=== PATIENT | female | born 1995 | race Caucasian/White ===

== ENCOUNTER 2022-04-16 08:57 | Outpatient (CLI) | payer BC ==
[2022-04-16 09:58] LABS: #Monocytes 0.6 10x3/uL (0.0-1.1); #Neutrophils 6.1 10x3/uL (1.5-8.4); %Basophils 0.4 % (0.0-2.0); %Eosinophils 0.4 % (0.0-6.0); %Lymphocytes 17.6 % (18.0-47.0); %Monocytes 6.7 % (0.0-10.0); %Neutrophils 74.4 % (40.0-75.0); Mean Corpuscular Hemoglobin 31.4 pg (27.0-33.0); Mean Corpuscular Volume 89.8 fl (81.6-98.3); Mean Platelet Volume 11.2 fl (7.4-10.4); Platelet Count 174 10x3/uL (150-450); RBC Distribution Width 12.8 % (11.5-14.5); Red Blood Cell (RBC) Count 3.82 10x6/uL (3.90-5.03); White Blood Cell (WBC) Count 8.2 10x3/uL (3.5-10.5)
[2022-04-16 10:33] LABS: SARS-CoV-2 NAA Rapid Test Not Detected (NotDetected)
[2022-04-16 10:35] LABS: HBSAg Index 0.31 S/CO (0-0.99); Hep B Surf Ag Non-Reactive S/CO (NonReactive); Syphilis Antibody Nonreactive (Nonreactive); Syphilis Antibody Index 0.05 S/CO (<1.00 Non-Reactive)
== END 2022-04-16 08:58 | disposition home or self-care (01) ==
LOC: CSHLAB 08:57
PROVIDERS: ATTEND Obstetrics & Gynecology
DX: Z01.812 Encounter for preprocedural laboratory examination (principal); Z20.822 Contact with and (suspected) exposure to COVID-19
CPT/HCPCS: 85025; 86780; 86900; 86901; 87340; U0002

== ENCOUNTER 2022-04-19 10:05 | Inpatient (IN) | payer BC ==
[2022-04-19] MEDS ORDERED: CEFAZOLIN 2 GM in Sodium Chloride 0.9% 100 ML IVPB SCH (10:22)
[2022-04-19] MEDS ORDERED: Ondansetron PF 4 MG/2 ML Vial IVP PRN ×2 (10:22→11:24)
[2022-04-19] MEDS ORDERED: Bicitra 30 ML UDCUP PO PRN (10:22)
[2022-04-19] MEDS ORDERED: Acetaminophen 500 MG TAB PO PRN (10:22)
[2022-04-19] MEDS ORDERED: Famotidine/PF 20 mg/2ml Vial SLOW IVP PRN (10:22)
[2022-04-19] MEDS ORDERED: hydrALAZINE 20 MG/ML VIAL SLOW IVP PRN ×2 (10:22→13:50)
[2022-04-19] MEDS ORDERED: Promethazine HCl 25 MG/ML VIAL IM PRN ×2 (10:22→11:24)
[2022-04-19 10:23] VITALS: BMI 27.6
[2022-04-19] MEDS ORDERED: Terbutaline Sulfate 1 MG/ML VIAL ONE (10:52)
[2022-04-19] MEDS: Lactated Ringer's 1,000 ML IV SCH ×2 (11:06→11:08)
[2022-04-19] MEDS ORDERED: Naloxone HCl 0.4 mg/ml Vial IV PRN (11:24)
[2022-04-19] MEDS ORDERED: Meperidine HCl/PF 25 MG/ML VIAL SLOW IVP PRN (11:24)
[2022-04-19] MEDS ORDERED: Ketorolac Tromethamine 30 MG/ML VIAL IVP PRN ×2 (11:24→20:46)
[2022-04-19] MEDS ORDERED: Naloxone HCl 0.4 mg/ml Vial IVP PRN ×2 (11:24)
[2022-04-19] MEDS ORDERED: Ondansetron HCl/PF 4 MG/2 ML Vial IVP PRN (11:24)
[2022-04-19] MEDS ORDERED: Fentanyl 100 MCG/2 ML VIAL SLOW IVP PRN (11:24)
[2022-04-19] MEDS ORDERED: Promethazine HCl 25 MG SUPP PR PRN (11:24)
[2022-04-19] MEDS ORDERED: diphenhydrAMINE 50 MG/ML VIAL IVP PRN (11:24)
[2022-04-19] MEDS ORDERED: Moisturizing Cream (Eucerin) 113 GM JAR TOP PRN (11:24)
[2022-04-19] MEDS ORDERED: HYDROmorphone 2 MG/ML VIAL SLOW IVP PRN (11:24)
[2022-04-19] MEDS ORDERED: Communication Order-Pharmacy FS SCH (11:30)
[2022-04-19] MEDS ORDERED: Ketorolac Tromethamine 30 MG/ML VIAL IVP SCH (11:30)
[2022-04-19] MEDS ORDERED: Fentanyl 100 MCG/2 ML VIAL ONE (12:07)
[2022-04-19] MEDS ORDERED: Morphine PF 10 MG/10 ML VIAL ONE (12:07)
[2022-04-19] MEDS ORDERED: Ondansetron PF 4 MG/2 ML Vial ONE (12:52)
[2022-04-19] MEDS ORDERED: Phenylephrine 10 MG/ML VIAL ONE (12:52)
[2022-04-19] MEDS ORDERED: Dexamethasone 4 mg/ml Vial ONE (12:52)
[2022-04-19] MEDS ORDERED: Oxytocin 10 UNITS/ML VIAL ONE (12:53)
[2022-04-19] MEDS ORDERED: Acetaminophen 325 MG TAB PO PRN (13:50)
[2022-04-19] MEDS ORDERED: diphenhydrAMINE 25 MG CAP PO PRN (13:50)
[2022-04-19] MEDS ORDERED: Lanolin Ointment 7 GM TUBE TOP PRN (13:50)
[2022-04-19] MEDS ORDERED: HYDROcodone/Acetaminophen 5/325 mg Tablet PO PRN (13:50)
[2022-04-19] MEDS ORDERED: Simethicone Chewable 80 MG TAB PO PRN (13:50)
[2022-04-19] MEDS ORDERED: Bisacodyl 10 MG SUPP PR PRN (13:50)
[2022-04-19] MEDS: Ibuprofen 800 MG TAB PO SCH ×2 (14:51→19:47)
[2022-04-19] MEDS: Ferrous Sulfate 325 MG TAB PO SCH (19:42)
[2022-04-20 05:09] LABS: Hemoglobin 10.6 g/dL (12.0-15.5); Mean Corpuscular HGB CONC 34.6 g/dL (32.0-36.0); Mean Corpuscular Hemoglobin 31.9 pg (27.0-33.0); Mean Corpuscular Volume 92.2 fl (81.6-98.3); Mean Platelet Volume 11.5 fl (7.4-10.4); Platelet Count 158 10x3/uL (150-450); RBC Distribution Width 12.6 % (11.5-14.5); Red Blood Cell (RBC) Count 3.32 10x6/uL (3.90-5.03); White Blood Cell (WBC) Count 13.8 10x3/uL (3.5-10.5)
[2022-04-20] MEDS: HYDROcodone/Acetaminophen 5/325 mg Tablet PO PRN ×2 (05:51→11:30)
[2022-04-20] MEDS: Ferrous Sulfate 325 MG TAB PO SCH ×2 (07:18→21:48)
[2022-04-20] MEDS: Prenatal Vitamin 1 TAB PO SCH (08:08)
[2022-04-20] MEDS: Ibuprofen 800 MG TAB PO SCH ×2 (14:47→22:03)
[2022-04-21] MEDS: Ibuprofen 800 MG TAB PO SCH (05:13)
[2022-04-21] MEDS: Ferrous Sulfate 325 MG TAB PO SCH (07:12)
[2022-04-21] MEDS: Prenatal Vitamin 1 TAB PO SCH (08:14)
[2022-04-21] MEDS: HYDROcodone/Acetaminophen 5/325 mg Tablet PO PRN (08:19)
[2022-04-21 11:21] VITALS: BP 108/65; TEMP 98
[2022-04-22] MEDS ORDERED: Boostrix 0.5 ML (Tdap) VIAL (>/=7 yrs of age) IM ONE (13:50)
== END 2022-04-21 11:30 | disposition home or self-care (01) | DRG 788 ==
LOC: CSHLD 10:05 → CSHPP 14:30
PROVIDERS: ADMIT Obstetrics & Gynecology; ATTEND Obstetrics & Gynecology
PROC: 10D00Z1 Extraction of Products of Conception, Low, Open Approach (ICD-10-PCS; principal; 2022-04-19)
DX: O64.1XX0 Obstructed labor due to breech presentation, not applicable or unspecified (principal); O24.420 Gestational diabetes mellitus in childbirth, diet controlled; O99.824 Streptococcus B carrier state complicating childbirth; Z3A.39 39 weeks gestation of pregnancy; Z37.0 Single live birth
CPT/HCPCS: 51702; 85027; 86850; 86900; 86901; J0690; J1100; J2274; J2370; J2405; J2590; J3010; J3490; J7120; S0028